=== PATIENT | female | born 1990 | race Hispanic/Latino ===

== ENCOUNTER 2024-02-05 09:49 | Emergency (ER) | payer MEDICAID, OTHER ==
[2024-02-05] MEDS ORDERED: Morphine 4 MG/ML VIAL ONE ×2 (10:29→13:25)
[2024-02-05] MEDS ORDERED: Ketorolac Tromethamine 30 MG (1 mL) VIAL ONE (13:25)
[2024-02-05] MEDS ORDERED: cefTRIAXone (ROCEPHIN) 1 GM VIAL ONE (13:26)
[2024-02-05] MEDS ORDERED: Sodium Chloride 0.9% 100 ML ONE (13:26)
[2024-02-05] MEDS ORDERED: metroNIDAZOLE 500 MG (100 mL) BAG ONE (14:21)
[2024-02-05] MEDS ORDERED: Doxycycline 100 MG in Sodium Chloride 0.9% 100 ML IVPB SCH (14:30)
[2024-02-07 16:27] LABS: Chlamydia by PCR, Vaginal Swab *Indeterminate (NotDetected); GC by PCR, Vaginal Swab *Indeterminate (NotDetected)
== END 2024-02-05 15:46 | disposition short-term general hospital (02) ==
LOC: ERS 09:49
DX: R19.00 Intra-abdominal and pelvic swelling, mass and lump, unspecified site (principal); N73.9 Female pelvic inflammatory disease, unspecified; R00.0 Tachycardia, unspecified; I10 Essential (primary) hypertension
CPT/HCPCS: 36415; 76856; 87040; 87480; 87491; 87510; 87591; 87660; J0696; J1885; J2270; J3490